=== PATIENT | female | born 1975 | race Caucasian/White ===

== ENCOUNTER 2019-12-24 17:35 | Emergency (ER) | payer BC ==
[~2019-12-24] VITALS: Ht 172.7 cm; Wt 65.9 kg
[2019-12-24] MEDS ORDERED: KURIC2 % EX (18:28)
[2019-12-24 18:36] VITALS: BP 148/80
== END 2019-12-24 18:36 | disposition home or self-care (01) | DRG 607 ==
LOC: ED 17:35
DX: B35.6 Tinea cruris (principal)